=== PATIENT | male | born 1970 | race African-American/Black ===

== ENCOUNTER 2018-01-21 10:57 | Emergency (ER) | payer OTHER, BC ==
[2018-01-21] MEDS ORDERED: Sodium Chloride 0.9% 10 ML Syringe FLUSH PRN (11:25)
[2018-01-21] MEDS ORDERED: Ondansetron 4 MG/2 ML SDV IVPUSH ONE (11:26)
[2018-01-21] MEDS ORDERED: Meclizine 25 MG Tab PO ONE (11:26)
[2018-01-21] MEDS ORDERED: Sodium Chloride 0.9% 1,000 ML IV ONE (11:29)
--- NOTE | 2018-01-21 11:46 | EDM.PDOC ---
ED HPI GENERAL MEDICAL PROBLEM - General Chief Complaint: General Stated Complaint: DIZZY Time Seen by Provider: 01/21/18 11:03 Source of Information: Reports: Patient, RN, RN Notes Reviewed History Limitations: Reports: No Limitations - History of Present Illness INITIAL COMMENTS - FREE TEXT/NARRATIVE: Patient presents to the ED at [facility] complaining of an acute onset of dizziness. Patient does not remember what he was doing at the time the dizziness occurred. He states he had one episode back in 2016 and was told it may be caused from an inner right ear problem. He feels somewhat nauseated. No vomiting. No diarrhea. No recent URI. He states he is trying to stay well hydrated with good PO fluid intake. His appetite has been good. No chest pain. No SOB. No abdominal pain. He feels his balance is significantly affected by the dizziness. No visual field disturbances. No headaches. Onset: Today, Sudden Onset Date: 01/21/18 Onset Time: 08:00 Associated Symptoms: Reports: Nausea/Vomiting - Related Data Allergies Allergy/AdvReac Type Severity Reaction Status Date / Time No Known Allergies Allergy Verified 01/21/18 11:18 Home Meds: Home Meds Folic Acid 1 mg PO DAILY 01/21/18 [History] Past Medical History Hematologic History: Reports: Sickle Cell Anemia Social & Family History - Tobacco Use Smoking Status *Q: Never Smoker ED ROS GENERAL - Review of Systems Review Of Systems: See Below Constitutional: Denies: Fever, Chills, Weakness HEENT: Reports: Vertigo. Denies: Vision Change Respiratory: Denies: Shortness of Breath, Cough Cardiovascular: Denies: Chest Pain, Palpitations GI/Abdominal: Reports: Nausea. Denies: Abdominal Pain, Vomiting Skin: Reports: No Symptoms Neurological: Reports: Dizziness. Denies: Headache, Numbness, Paresthesia, Tingling ED EXAM, GENERAL - Physical Exam Exam: See Below Exam Limited By: No Limitations General Appearance: Alert, No Apparent Distress Eye Exam: Bilateral Eye: Normal Inspection, PERRL Ears: Normal External Exam, Normal Canal, Normal TMs Ear Exam: Bilateral Ear: TM normal Neck: Supple, Full Range of Motion Respiratory/Chest: No Respiratory Distress, Lungs Clear, Normal Breath Sounds Cardiovascular: Normal Peripheral Pulses, Regular Rate, Rhythm Peripheral Pulses: 2+: Radial (L), Radial (R) GI/Abdominal: Normal Bowel Sounds, Soft, Non-Tender Neurological: Alert, Oriented, Normal Cognition Skin Exam: Warm, Dry, Intact, Normal Color, No Rash EKG INTERPRETATION EKG Date: 01/21/18 Time: 11:13 Rhythm: NSR Rate (Beats/Min): 61 [place]: Normal P-Wave: Present QRS: Normal ST-T: Normal QT: Normal [place]/PQ Interval: 0.18 Comparison: NA - No Prior EKG EKG Interpretation Comments: 1. Sinus Rhythm 2. Possible LVH Course - Vital Signs Last Recorded V/S: Last Vital Signs Temp 36.3 C 01/21/18 11:19 Pulse 65 01/21/18 11:19 Resp 16 01/21/18 11:19 BP 152/88 H 01/21/18 11:19 Pulse Ox 100 01/21/18 11:19 - Orders/Labs/Meds Orders: Active Orders 24 hr Category Date Time Status EKG 12 Lead [EKG Documentation Completion] [RC] STAT Care 01/21/18 11:26 Active Consult to Physical Therapy [PT Evaluation and Cons 01/21/18 11:26 Active Treatment] [CONS] Routine CBC WITH AUTO DIFF [HEME] Stat Lab 01/21/18 12:13 Results MANUAL DIFFERENTIAL QA/NC [HEME] Stat Lab 01/21/18 12:13 Results UA W/MICROSCOPIC [URIN] Stat Lab 01/21/18 12:27 Results Labs: Laboratory Tests 01/21/18 01/21/18 01/21/18 Range/Units 12:13 12:13 12:27 WBC 9.1 (4.0-10.0) x10^3/uL RBC 3.83 L (4.5-6.0) x10^6/uL Hgb 8.4 L (14.0-18.0) g/dL Hct 25.2 L (40.0-52.0) % MCV 65.8 L (78.0-93.0) fL MCH 21.9 L (26.0-32.0) pg MCHC 33.3 (32.0-36.0) g/dL RDW Coeff of Tam 23.9 H (10.0-15.0) % Plt Count 180 (130-400) x10^3/uL Add Manual Diff Yes Sodium 143 (136-145) mmol/L Potassium 3.6 (3.5-5.1) mmol/L Chloride 108 H (98-107) mmol/L Carbon Dioxide 26 (21-32) mmol/L BUN 8 (7-18) mg/dL Creatinine 0.7 (0.70-1.30) mg/dL Est Cr Clr Drug Dosing 154.94 mL/min Estimated GFR (MDRD) > 60 Glucose 88 (74-106) mg/dL Calcium 8.8 (8.5-10.1) mg/dL Magnesium 2.0 (1.8-2.4) mg/dL Urine Color Dark yellow H (YELLOW) Urine Appearance Clear (CLEAR) Urine pH 7.0 (5.0-8.0) Ur Specific [place] 1.015 Urine Protein Negative (NEGATIVE) mg/dL Urine Glucose (UA) Negative (NEGATIVE) mg/dL Urine Ketones Negative (NEGATIVE) mg/dL Urine Occult Blood Negative (NEGATIVE) Urine Nitrite Negative (NEGATIVE) Urine Bilirubin Negative (NEGATIVE) Urine Urobilinogen 4.0 H (0.2) EU/dL Ur Leukocyte Esterase Negative (NEGATIVE) Urine Opiates Screen (NEAGTIVE) Ur Buprenorphine Scrn (NEGATIVE) Ur Oxycodone Screen (NEGATIVE) Urine Methadone Screen (NEGATIVE) Ur Barbiturates Screen (NEGATIVE) Ur Tricyclics Screen (NEGATIVE) Ur Amphetamine Screen (NEGATIVE) U Methamphetamines Scrn (NEGATIVE) Urine MDMA Screen (NEGATIVE) U Benzodiazepines Scrn (NEGATIVE) U Cocaine Metab Screen (NEGATIVE) U Marijuana (THC) Screen (NEGATIVE) 01/21/18 Range/Units 12:27 WBC (4.0-10.0) x10^3/uL RBC (4.5-6.0) x10^6/uL Hgb (14.0-18.0) g/dL Hct (40.0-52.0) % MCV (78.0-93.0) fL MCH (26.0-32.0) pg MCHC (32.0-36.0) g/dL RDW Coeff of Tam (10.0-15.0) % Plt Count (130-400) x10^3/uL Add Manual Diff Sodium (136-145) mmol/L Potassium (3.5-5.1) mmol/L Chloride (98-107) mmol/L Carbon Dioxide (21-32) mmol/L BUN (7-18) mg/dL Creatinine (0.70-1.30) mg/dL Est Cr Clr Drug Dosing mL/min Estimated GFR (MDRD) Glucose (74-106) mg/dL Calcium (8.5-10.1) mg/dL Magnesium (1.8-2.4) mg/dL Urine Color (YELLOW) Urine Appearance (CLEAR) Urine pH (5.0-8.0) Ur Specific [place] Urine Protein (NEGATIVE) mg/dL Urine Glucose (UA) (NEGATIVE) mg/dL Urine Ketones (NEGATIVE) mg/dL Urine Occult Blood (NEGATIVE) Urine Nitrite (NEGATIVE) Urine Bilirubin (NEGATIVE) Urine Urobilinogen (0.2) EU/dL Ur Leukocyte Esterase (NEGATIVE) Urine Opiates Screen Negative (NEAGTIVE) Ur Buprenorphine Scrn Negative (NEGATIVE) Ur Oxycodone Screen Negative (NEGATIVE) Urine Methadone Screen Negative (NEGATIVE) Ur Barbiturates Screen Negative (NEGATIVE) Ur Tricyclics Screen Negative (NEGATIVE) Ur Amphetamine Screen Negative (NEGATIVE) U Methamphetamines Scrn Negative (NEGATIVE) Urine MDMA Screen Negative (NEGATIVE) U Benzodiazepines Scrn Negative (NEGATIVE) U Cocaine Metab Screen Negative (NEGATIVE) U Marijuana (THC) Screen Negative (NEGATIVE) Meds: Medications Discontinued Medications Generic Name Dose Route Start Last Admin Trade Name Freq PRN Reason Stop Dose Admin Sodium Chloride 1,000 mls @ 999 mls/hr 01/21/18 11:29 Normal Saline IV 01/21/18 12:29 ONETIME ONE Meclizine HCl 25 mg 01/21/18 11:26 01/21/18 12:02 Antivert PO 01/21/18 11:27 25 mg ONETIME ONE Administration Ondansetron HCl 4 mg 01/21/18 11:26 Zofran IVPUSH 01/21/18 11:27 ONETIME ONE Sodium Chloride 10 ml 01/21/18 11:25 Saline Flush FLUSH ASDIRECTED PRN Keep Vein Open Departure - Departure Time of Disposition: 12:42 Disposition: Home, Self-Care 01 Condition: Good Clinical Impression: Dizziness - Discharge Information Instructions: Dizziness, [id number] Referrals: PCP,None [Primary Care Provider] - Forms: ED Department Discharge Additional Instructions: 1. Stay well hydrated and rest 2. May take over the counter medications for dizziness; talk to your pharmacist about which medication to use 3. May need an appointment with your Primary if dizziness continues 4. You may continue seeing physical therapy for your dizziness as well 5. Call with any questions/concern 6. Have your blood counts recheck at the clinic - Problem List Review Problem List Initiated/Reviewed/Updated: Yes - My Orders Last 24 Hours: My Active Orders 01/21/18 11:26 EKG 12 Lead [EKG Documentation Completion] [RC] STAT Consult to Physical Therapy [PT Evaluation and Treatment] [CONS] Routine 01/21/18 12:13 CBC WITH AUTO DIFF [HEME] Stat MANUAL DIFFERENTIAL QA/NC [HEME] Stat 01/21/18 12:27 UA W/MICROSCOPIC [URIN] Stat - Assessment/Plan Last 24 Hours: My Active Orders 01/21/18 11:26 EKG 12 Lead [EKG Documentation Completion] [RC] STAT Consult to Physical Therapy [PT Evaluation and Treatment] [CONS] Routine 01/21/18 12:13 CBC WITH AUTO DIFF [HEME] Stat MANUAL DIFFERENTIAL QA/NC [HEME] Stat 01/21/18 12:27 UA W/MICROSCOPIC [URIN] Stat Plan: Labs discussed with patient, and discussed lower Hemoglobin. Advised patient to see his PCP for follow up lab. Vertigo was resolved per Physical Therapist. Will recommend OTC medications for dizziness. May want to see PCP if prescription is needed. Stay well hydrated.
[2018-01-21 12:33] LABS: CHLORIDE,CL 108 mmol/L (98-107); SODIUM,NA 143 mmol/L (136-145)
== END 2018-01-21 12:55 | disposition home or self-care (01) ==
LOC: VM.ED 10:57
DX: R42 Dizziness and giddiness (principal)
CPT/HCPCS: 36415; 80048; 80305; 81001; 83735; 85008; 85025; 85045; 93005; 99284; A9270-GY

== ENCOUNTER 2019-06-19 03:15 | Emergency (ER) | payer BC, OTHER ==
[2019-06-19] MEDS ORDERED: Ketorolac 30 MG/ML SDV IM ONE (03:41)
[2019-06-19 04:41] LABS: CHLORIDE,CL 106 mmol/L (98-107); SODIUM,NA 143 mmol/L (136-145)
[2019-06-19 04:47] LABS: ANION GAP 13.5 mmol/L (10-20)
[2019-06-19] MEDS ORDERED: Sodium Chloride 0.9% 10 ML Syringe FLUSH PRN (04:48)
[2019-06-19] MEDS ORDERED: Ondansetron 4 MG/2 ML SDV IVPUSH ONE (04:48)
[2019-06-19] MEDS ORDERED: Morphine 4 MG/ML Syringe IVPUSH ONE (04:48)
--- NOTE | 2019-06-19 04:51 | EDM.PDOC ---
ED HPI GENERAL MEDICAL PROBLEM - General Chief Complaint: General Stated Complaint: Left lateral rib pain Time Seen by Provider: 06/19/19 03:35 Source of Information: Reports: Patient History Limitations: Reports: No Limitations - History of Present Illness INITIAL COMMENTS - FREE TEXT/NARRATIVE: Patient presents with left sided chest pain that is worse on palpation and respiration. Recent corneal transplant done on Friday06/15/19. Has sickle cell disease. Pain started this evening. Was given hydrocodone post surgery for his left eye, however this did not help his chest pain. He denies headache , abdominal pain, altered LOC, no fatigue. Does have shortness of breath. Limbal stem cell deficiency history. Onset: Gradual Onset Date: 06/18/19 Duration: Getting Worse Location: Reports: Chest Quality: Reports: Sharp, Stabbing Severity: Severe Worsens with: Reports: Breathing, Movement Associated Symptoms: Reports: No Other Symptoms Treatments MACHINE SLAT BASKET MAKER: Reports: Other (see below) Other Treatments MACHINE SLAT BASKET MAKER: Hydrocodone at 8pm, with no relief. left lateral ribs Pain Score (Numeric/FACES): 9 - Related Data Allergies Allergy/AdvReac Type Severity Reaction Status Date / Time No Known Allergies Allergy Verified 06/19/19 03:29 Home Meds: Home Meds Folic Acid 1 mg PO DAILY 01/21/18 [History] Acetaminophen/HYDROcodone [[place] 325-5 MG] 1 tab PO Q4H PRN 06/19/19 [History] predniSONE 60 mg pe PO DAILY 06/19/19 [History] Past Medical History Hematologic History: Reports: Sickle Cell Anemia ED ROS GENERAL - Review of Systems Review Of Systems: See Below Constitutional: Reports: No Symptoms HEENT: Reports: No Symptoms Respiratory: Reports: Pleuritic Chest Pain Cardiovascular: Reports: Chest Pain Endocrine: Reports: No Symptoms GI/Abdominal: Reports: No Symptoms : Reports: No Symptoms Musculoskeletal: Reports: No Symptoms Skin: Reports: No Symptoms Neurological: Reports: No Symptoms Psychiatric: Reports: No Symptoms Hematologic/Lymphatic: Reports: No Symptoms Immunologic: Reports: No Symptoms ED EXAM, GENERAL - Physical Exam Exam: See Below Exam Limited By: No Limitations General Appearance: Alert, WD/WN, Mild Distress Eye Exam: Bilateral Eye: EOMI, Normal Inspection Ears: Normal TMs Nose: Normal Inspection, Normal Mucosa, No Blood Throat/Mouth: Normal Inspection, Normal Lips, Normal Teeth, Normal Gums, Normal Oropharynx, Normal Voice, No Airway Compromise Head: Atraumatic, Normocephalic Neck: Normal Inspection, Supple, Non-Tender, Full Range of Motion Respiratory/Chest: No Respiratory Distress, Lungs Clear, Normal Breath Sounds, No Accessory Muscle Use, Chest Non-Tender Cardiovascular: Normal Peripheral Pulses, Regular Rate, Rhythm, No Edema, No Gallop, No JVD, No Murmur, No Rub Peripheral Pulses: 2+: Posterior Tibial (L), Posterior Tibial (R), Dorsalis Pedis (L), Dorsalis Pedis (R) GI/Abdominal: Normal Bowel Sounds, Soft, Non-Tender, No Organomegaly, No Distention, No Abnormal Bruit, No Mass Back Exam: Normal Inspection, Full Range of Motion, NT Extremities: Normal Inspection, Normal Range of Motion, Non-Tender, Normal Capillary Refill, No Pedal Edema Neurological: Alert, Oriented, CN II-XII Intact, Normal Cognition, Normal Gait, Normal Reflexes, No Motor/Sensory Deficits Psychiatric: Normal Affect, Normal Mood Skin Exam: Warm, Dry, Intact, Normal Color, No Rash Lymphatic: No Adenopathy Course - Vital Signs Last Recorded V/S: Last Vital Signs Temp 37.1 C 06/19/19 03:15 Pulse 62 06/19/19 03:15 Resp 16 06/19/19 03:15 BP 142/87 H 06/19/19 03:15 Pulse Ox 97 06/19/19 03:15 Departure - Departure Time of Disposition: 06:47 Disposition: Home, Self-Care 01 Condition: Fair Clinical Impression: Costochondritis, acute - Discharge Information *PRESCRIPTION DRUG MONITORING PROGRAM REVIEWED*: No *COPY OF PRESCRIPTION DRUG MONITORING REPORT IN PATIENT ALAN: No Instructions: Costochondritis, [id number] Additional Instructions: Plan 1. Stay well hydrated 2. Take oxycodone as needed for chest wall pain 3. Follow up with your fiction and nonfiction prose writer as needed for sickle cell follow up 4. Labs today were negative for acute process 5. Continue to take your prednisone 6. 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 Stay well hydrated 2. Take oxycodone as needed for chest wall pain 3. Follow up with your fiction and nonfiction prose writer as needed for sickle cell follow up 4. Labs today were negative for acute process 5. Continue to take your prednisone 6. Call here with any additional questions or concerns
[2019-06-19] MEDS ORDERED: Sodium Chloride 0.9% 1,000 ML IV SCH (05:00)
[2019-06-19] MEDS ORDERED: cefTRIAXone 2 GM Vial IVPUSH ONE (05:16)
[2019-06-19] MEDS ORDERED: oxyCODONE 5 MG Tab PO ONE (06:39)
--- NOTE | 2019-06-19 09:13 | CT ---
[id number] CT/CTA Chest EXAM: CT ANGIOGRAM CHEST INDICATION: CHEST PAIN, ELEVATED D-DIMER COMPARISON: None. DISCUSSION: The pulmonary arteries are normal in appearance with no emboli identified. And atelectasis at the lung bases. Linear atelectasis and/or scarring within the right lower lobe. Trace bilateral pleural effusions. No pneumothorax. Mild predominantly centrilobular emphysema. No airspace consolidation. No pulmonary edema. The heart is enlarged. No significant atherosclerotic calcifications of the aorta or its branches. No pericardial effusion. The imaged upper abdomen and osseous structures are unremarkable. IMPRESSION: 1. No evidence of acute pulmonary embolism. 2. Trace bilateral pleural effusions. Noel Limon DO 06/19/19 0912 Thank you for allowing us to participate in the care of your patient.
--- NOTE | 2019-06-19 09:46 | CR ---
[id number] RAD/RAD Chest PA or AP 1V EXAM: RAD Chest PA or AP 1V INDICATION: CHEST PAIN COMPARISON: None. DISCUSSION: Cardiomediastinal silhouette is normal in size and contour. Elevation left hemidiaphragm. No infiltrate, effusion, pneumothorax, or edema. Low lung volumes associated vascular crowding. Left basilar subsegmental atelectasis. IMPRESSION: No acute cardiopulmonary abnormality. Noel Limon DO 06/19/19 0945 Thank you for allowing us to participate in the care of your patient.
== END 2019-06-19 07:02 | disposition home or self-care (01) ==
LOC: VM.ED 03:15
DX: M94.0 Chondrocostal junction syndrome [Tietze] (principal)
CPT/HCPCS: 36415; 71045; 71275; 80053; 81001; 82550; 83605; 84484; 85025; 85379; 86140; 87040; 96361; 96372; 96374; 96375; 99284; A9270; J0696; J1885; J2270; J2405; J7030

== ENCOUNTER 2019-07-21 21:45 | Emergency (ER) | payer OTHER ==
[2019-07-21] MEDS ORDERED: Sodium Chloride 0.9% 10 ML Syringe FLUSH PRN (22:14)
[2019-07-21] MEDS: Sodium Chloride 0.9% 1,000 ML IV ONE ×2 (22:20→23:15)
--- NOTE | 2019-07-21 22:22 | EDM.PDOC ---
ED HPI GENERAL MEDICAL PROBLEM - General Chief Complaint: General Stated Complaint: Acute low back pain, Hx sickle cell anemia Time Seen by Provider: 07/21/19 22:05 Source of Information: Reports: Patient - History of Present Illness INITIAL COMMENTS - FREE TEXT/NARRATIVE: Luis Eduardo is a 48 y/o male who comes to the ER with complaints of back pain. He reports that the pain started this AM, has gotten worse through the day. He has a history of sickle cell anemia. He has been using pain meds at home and trying to drink water, but he cannot head off the crisis. 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 Ortho has been giving Hydrocodone for his hip pain and he tried using that today , but it did not help. He also has been struggling with constipation for the last few days since he has been using the pain meds. He was last seen at [facility], but does not have a local PCP. low back/bilatral hips Pain Score (Numeric/FACES): 10 - Related Data Allergies Allergy/AdvReac Type Severity Reaction Status Date / Time No Known Allergies Allergy Verified 07/21/19 22:44 Home Meds: Home Meds Folic Acid 1 mg PO DAILY 01/21/18 [History] Acetaminophen/HYDROcodone [[place] 325-5 MG] 1 tab PO Q4H PRN 06/19/19 [History] predniSONE 5 mg pe PO DAILY 06/19/19 [History] Hydrocodone/Acetaminophen [Hydrocodon-Acetaminophen 5-325] 1 - 2 each PO Q6HR # 20 tablet 07/21/19 [Rx] Past Medical History HEENT History: Reports: Other (See Below) Other HEENT History: Limbal stem cell deficiency Hematologic History: Reports: Sickle Cell Anemia - Past Surgical History HEENT Surgical History: Reports: Eye Surgery, Other (See Below) Other HEENT Surgeries/Procedures: Bilateral corneal transplant. ED ROS GENERAL - Review of Systems Review Of Systems: See Below Constitutional: Reports: No Symptoms HEENT: Reports: No Symptoms Respiratory: Reports: No Symptoms Cardiovascular: Reports: No Symptoms Endocrine: Reports: No Symptoms GI/Abdominal: Reports: Constipation : Reports: No Symptoms Musculoskeletal: Reports: Back Pain, Joint Pain (Bilateral Hip Pain) Skin: Reports: No Symptoms Neurological: Reports: No Symptoms Psychiatric: Reports: No Symptoms Hematologic/Lymphatic: Reports: Anemia Immunologic: Reports: No Symptoms ED EXAM, GENERAL - Physical Exam Exam: See Below General Appearance: Alert, WD/WN (adult male, obviosuly in pain; lying on ER cart) Ears: Normal External Exam, Hearing Grossly Normal Nose: Normal Inspection, No Blood Throat/Mouth: Normal Inspection, Normal Lips Head: Atraumatic, Normocephalic Neck: Supple Respiratory/Chest: No Respiratory Distress, Lungs Clear, Normal Breath Sounds, Chest Non-Tender Cardiovascular: Regular Rate, Rhythm, No Edema, No Murmur GI/Abdominal: Normal Bowel Sounds, Soft, Non-Tender (Male) Exam: Deferred Rectal (Males) Exam: Deferred Extremities: Normal Inspection, Normal Capillary Refill Neurological: Alert, Oriented, CN II-XII Intact, Normal Cognition Psychiatric: Normal Affect, Normal Mood Skin Exam: Warm, Dry, Intact, Normal Color, No Rash Lymphatic: No Adenopathy Course - Vital Signs Text/Narrative:: 2204 The patient was seen by the SAMPLE ROOM SUPERVISOR. Labs were ordered. Oxygen ordered. He was given a liter of NS and Fentanyl 100mcg IVP. 2314 Patient feeling better, rating pain 5/10. Will given a second liter of IV fluids and Fentanyl 50 mcg IVP. Will discharge to home after IV fluids are done. He was given discharge instructions and left the ER in stable condition. Last Recorded V/S: Last Vital Signs Temp 36.5 C 07/21/19 21:45 Pulse 63 07/21/19 21:45 Resp 16 07/21/19 21:45 BP 195/90 H 07/21/19 21:45 Pulse Ox 100 07/21/19 21:45 - Orders/Labs/Meds Orders: Active Orders 24 hr Category Date Time Status Oxygen Therapy [RC] ASDIRECTED Care 07/21/19 22:14 Active Sodium Chloride 0.9% @ Wide Open(1,000ml) Med 07/21/19 23:12 Ordered Sodium Chloride 0.9% [Normal Saline] 1,000 ml IV ONETIME Sodium Chloride 0.9% [Saline Flush] Med 07/21/19 22:14 Active 10 ml FLUSH ASDIRECTED PRN Saline Lock Insert [OM.PC] Stat Oth 07/21/19 22:13 Ordered Medication Orders Sodium Chloride (Normal Saline) 1,000 mls @ 999 mls/hr IV ONETIME ONE Stop: 07/22/19 00:12 Last Admin: 07/21/19 23:15 Dose: 999 mls/hr Sodium Chloride (Saline Flush) 10 ml FLUSH ASDIRECTED PRN PRN Reason: Keep Vein Open Labs: Laboratory Tests 07/21/19 07/21/19 07/21/19 Range/Units 22:22 22:22 22:50 WBC 19.9 H (4.0-10.0) x10^3/uL RBC 3.76 L (4.5-6.0) x10^6/uL Hgb 9.5 L (14.0-18.0) g/dL Hct 27.7 L (40.0-52.0) % MCV 73.7 L D (78.0-93.0) fL MCH 25.3 L (26.0-32.0) pg MCHC 34.3 (32.0-36.0) g/dL RDW Coeff of Tam 25.5 H (10.0-15.0) % Plt Count 199 (130-400) x10^3/uL Add Manual Diff Yes Neutrophils % (Manual) 80 (50-80) % Band Neutrophils % 2 (0-6) % Lymphocytes % (Manual) 8 L (25-50) % Monocytes % (Manual) 7 (2-11) % Metamyelocytes % 3 H (0) % Nucleated RBCs 2 (0-5) /100WBC Platelet Estimate Adequate Poikilocytosis 2+ moderate H Anisocytosis 2+ moderate H Macrocytosis 2+ moderate H Spherocytes 2+ moderate H Sickle Cells 2+ moderate H Sodium 142 (136-145) mmol/L Potassium 3.6 (3.5-5.1) mmol/L Chloride 104 (98-107) mmol/L Carbon Dioxide 26 (21-32) mmol/L Anion Gap 15.6 (10-20) mmol/L BUN 7 (7-18) mg/dL Creatinine 0.8 (0.70-1.30) mg/dL Est Cr Clr Drug Dosing 134.15 mL/min Estimated GFR (MDRD) > 60 Glucose 122 H (74-106) mg/dL Calcium 9.2 (8.5-10.1) mg/dL Corrected Calcium 9.44 (8.5-10.1) mg/dL Total Bilirubin 2.1 H (0.2-1.0) mg/dL AST 33 (15-37) U/L ALT 32 (16-63) U/L Alkaline Phosphatase 112 (46-116) U/L Total Protein 8.0 (6.4-8.2) g/dL Albumin 3.7 (3.4-5.0) g/dL Globulin 4.3 Albumin/Globulin Ratio 0.86 Urine Color Dark yellow H (YELLOW) Urine Appearance Slightly cloudy H (CLEAR) Urine pH 7.0 (5.0-8.0) Ur Specific [place] 1.015 Urine Protein 30 H (NEGATIVE) mg/dL Urine Glucose (UA) Negative (NEGATIVE) mg/dL Urine Ketones Negative (NEGATIVE) mg/dL Urine Occult Blood Negative (NEGATIVE) Urine Nitrite Negative (NEGATIVE) Urine Bilirubin Negative (NEGATIVE) Urine Urobilinogen 2.0 H (0.2) EU/dL Ur Leukocyte Esterase Negative (NEGATIVE) Urine RBC 0-5 (NOT SEEN) /HPF Urine WBC 0-5 (NOT SEEN) /HPF Ur Squamous Epith Cells Rare (NEGATIVE) /HPF Urine Bacteria Rare (NEGATIVE) /HPF Urine Mucus Rare H (NEGATIVE) /LPF Meds: Medications Generic Name Dose Route Start Last Admin Trade Name Freq PRN Reason Stop Dose Admin Sodium Chloride 1,000 mls @ 999 mls/hr 07/21/19 23:12 07/21/19 23:15 Normal Saline IV 07/22/19 00:12 999 mls/hr ONETIME ONE Administration Sodium Chloride 10 ml 07/21/19 22:14 Saline Flush FLUSH ASDIRECTED PRN Keep Vein Open Discontinued Medications Generic Name Dose Route Start Last Admin Trade Name Freq PRN Reason Stop Dose Admin Fentanyl 100 mcg 07/21/19 22:16 07/21/19 22:29 Sublimaze IVPUSH 07/21/19 22:17 100 mcg ONETIME ONE Administration Fentanyl 50 mcg 07/21/19 23:13 07/21/19 23:20 Sublimaze IVPUSH 07/21/19 23:14 50 mcg ONETIME ONE Administration Sodium Chloride 1,000 mls @ 999 mls/hr 07/21/19 22:15 07/21/19 22:20 Normal Saline IV 07/21/19 23:15 999 mls/hr ONETIME ONE Administration Departure - Departure Time of Disposition: 23:45 Disposition: Home, Self-Care 01 Condition: Good Clinical Impression: Sickle cell anemia with pain - Discharge Information *PRESCRIPTION DRUG MONITORING PROGRAM REVIEWED*: No *COPY OF PRESCRIPTION DRUG MONITORING REPORT IN PATIENT ALAN: No Prescriptions: Hydrocodone/Acetaminophen [Hydrocodon-Acetaminophen 5-325] 1 - 2 each PO Q6HR # 20 tablet Instructions: Sickle Cell Anemia, Adult Referrals: PCP,Unknown [Primary Care Provider] - Forms: ED Department Discharge Additional Instructions: 1)Establish care with a local PCP as soon as possible 2)Continue with pain meds as needed 3)Stay well hydrated 4)Hydrocodone/APAP 5/325mg 1-2 tablets oral every 4-6 hours as needed for pain # 20 (Rx) 5)Return to the ER if pain persists or your condition does improve as expected - My Orders Last 24 Hours: My Active Orders 07/21/19 22:13 Saline Lock Insert [OM.PC] Stat 07/21/19 22:14 Oxygen Therapy [RC] ASDIRECTED Sodium Chloride 0.9% [Saline Flush] 10 ml FLUSH ASDIRECTED PRN 07/21/19 23:12 Sodium Chloride 0.9% @ Wide Open(1,000ml) Sodium Chloride 0.9% [Normal Saline] 1 ,000 ml IV ONETIME - Assessment/Plan Last 24 Hours: My Active Orders 07/21/19 22:13 Saline Lock Insert [OM.PC] Stat 07/21/19 22:14 Oxygen Therapy [RC] ASDIRECTED Sodium Chloride 0.9% [Saline Flush] 10 ml FLUSH ASDIRECTED PRN 07/21/19 23:12 Sodium Chloride 0.9% @ Wide Open(1,000ml) Sodium Chloride 0.9% [Normal Saline] 1 ,000 ml IV ONETIME
[2019-07-21] MEDS: fentaNYL 100 MCG/2 ML SDV IVPUSH ONE ×2 (22:29→23:20)
[2019-07-21 22:51] LABS: CHLORIDE,CL 104 mmol/L (98-107); SODIUM,NA 142 mmol/L (136-145)
[2019-07-21 22:52] LABS: ANION GAP 15.6 mmol/L (10-20)
== END 2019-07-21 23:55 | disposition home or self-care (01) ==
LOC: VM.ED 21:45
DX: D57.1 Sickle-cell disease without crisis (principal); M54.5 Low back pain
CPT/HCPCS: 80053; 81001; 85025; 96361; 96374; 96376; 99284-25; J3010; J7030

== ENCOUNTER 2019-07-22 08:30 | Observation (INO) | payer OTHER ==
[2019-07-22] MEDS ORDERED: fentaNYL 100 MCG/2 ML SDV IVPUSH PRN (08:37)
[2019-07-22] MEDS ORDERED: Sodium Chloride 0.9% 1,000 ML IV ONE ×2 (08:37→09:30)
[2019-07-22] MEDS ORDERED: HYDROmorphone 1 MG/ML Syringe IVPUSH PRN (08:39)
[2019-07-22] MEDS ORDERED: Acetaminophen 325 MG Tab PO PRN (08:39)
[2019-07-22] MEDS ORDERED: Ondansetron 4 MG/2 ML SDV IV PRN (08:39)
--- NOTE | 2019-07-22 08:58 | PCM.HP.2 ---
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 He was given IV fluids and pain meds and was doing much better. He was sent home and then at home the pain returned and he could not keep pain meds down. He was in pain most of the night. He is brought back to the hospital by ambulance and was given Fentanyl 100mcg IVP enroute to the ER. - Related Data Allergies/Adverse Reactions: Allergies Allergy/AdvReac Type Severity Reaction Status Date / Time No Known Allergies Allergy Verified 07/21/19 22:44 Home Medications: Home Meds Folic Acid 1 mg PO DAILY 01/21/18 [History] Past Medical History HEENT History: Reports: Other (See Below) Other HEENT History: Limbal stem cell deficiency Hematologic History: Reports: Sickle Cell Anemia - Past Surgical History HEENT Surgical History: Reports: Eye Surgery, Other (See Below) Other HEENT Surgeries/Procedures: Bilateral corneal transplant. H&P Review of Systems - Review of Systems: Review Of Systems: See Below General: Reports: No Symptoms HEENT: Reports: No Symptoms Pulmonary: Reports: No Symptoms Cardiovascular: Reports: No Symptoms Gastrointestinal: Reports: No Symptoms Genitourinary: Reports: No Symptoms Musculoskeletal: Reports: Back Pain Skin: Reports: No Symptoms Psychiatric: Reports: No Symptoms Neurological: Reports: No Symptoms Hematologic/Lymphatic: Reports: Anemia Immunologic: Reports: No Symptoms Exam - Exam Exam: See Below - Vital Signs Vital Signs: Last Vital Signs Temp 38.3 C H 07/22/19 08:37 Pulse 76 07/22/19 08:37 Resp 16 07/22/19 08:37 BP 147/79 H 07/22/19 08:37 Pulse Ox 100 07/22/19 08:37 - Exam Quality Assessment: Supplemental Oxygen General: Alert, Oriented HEENT: Conjunctiva Clear, Nares Patent, Pupils Equal, Pupils Reactive, TMs Clear Neck: Supple Lungs: Clear to Auscultation, Normal Respiratory Effort Cardiovascular: Regular Rate, Regular Rhythm GI/Abdominal Exam: Normal Bowel Sounds, Soft, Non-Tender (Male) Exam: Deferred Rectal (Males) Exam: Deferred Back Exam: Normal Inspection Extremities: Normal Inspection Skin: Warm, Dry, Intact Neurological: Cranial Nerves Intact Neuro Extensive - Mental Status: Alert, Oriented x3, Normal Mood/Affect, Normal Cognition Neuro Extensive - Motor, Sensory, Reflexes: CN II-XII Intact Physical Exam Comments:: Adult male , appears to be in pain - Problem List (1) Sickle cell anemia with pain SNOMED Code(s): 247676911 ICD Code: D57.00 - HB-SS DISEASE WITH CRISIS, UNSPECIFIED Status: Acute Priority: High Current Visit: Yes Onset Date: ~07/21/19 Problem List Initiated/Reviewed/Updated: Yes Orders Last 24hrs: Active Orders 24 hr Category Date Time Status Admission Status [Patient Status] [ADT] Routine ADT 07/22/19 08:37 Active Patient Status [ADT] Routine ADT 07/22/19 08:39 Ordered Ambulate [RC] PER UNIT ROUTINE Care 07/22/19 08:43 Ordered Height and Weight [RC] UPON Care 07/22/19 08:39 Ordered Intake and Output [RC] QSHIFT Care 07/22/19 08:42 Ordered Oxygen Therapy [RC] PRN Care 07/22/19 08:39 Ordered Up ad Toshia [RC] ASDIRECTED Care 07/22/19 08:39 Ordered VTE/DVT Education [RC] PER UNIT ROUTINE Care 07/22/19 08:39 Ordered Vital Signs [RC] Q4H Care 07/22/19 08:39 Ordered Regular Diet [DIET] Diet 07/22/19 Lunch Ordered C-REACTIVE PROTEIN [CHEM] Stat Lab 07/22/19 08:39 Ordered CBC WITH AUTO DIFF [HEME] Stat Lab 07/22/19 08:39 Ordered COMPREHENSIVE METABOLIC PN,CMP [CHEM] Stat Lab 07/22/19 08:39 Ordered LACTIC ACID [CHEM] Stat Lab 07/22/19 08:47 Ordered Acetaminophen [Tylenol] Med 07/22/19 08:39 Ordered 650 mg PO Q4H PRN Ondansetron [Zofran] Med 07/22/19 08:39 Ordered 4 mg IV Q4H PRN Sodium Chloride 0.45% 1,000 ml Med 07/22/19 09:00 Ordered IV ASDIRECTED Sodium Chloride 0.9% @ Wide Open(1,000ml) Med 07/22/19 08:37 Ordered Sodium Chloride 0.9% [Normal Saline] 1,000 ml IV ONETIME Sodium Chloride 0.9% @ Wide Open(1,000ml) Med 07/22/19 08:47 Ordered Sodium Chloride 0.9% [Normal Saline] 1,000 ml IV ONETIME Sodium Chloride 0.9% [Saline Flush] Med 07/22/19 08:39 Ordered 10 ml FLUSH ASDIRECTED PRN fentaNYL [Sublimaze] Med 07/22/19 08:37 Ordered 100 mcg IVPUSH ASDIRECTED PRN Peripheral IV Insertion Adult [OM.PC] Routine Oth 07/22/19 08:39 Ordered Resuscitation Status Routine Resus Stat 07/22/19 08:39 Ordered Medication Orders Acetaminophen (Tylenol) 650 mg PO Q4H PRN PRN Reason: Pain (Mild 1-3)/fever Fentanyl (Sublimaze) 100 mcg IVPUSH ASDIRECTED PRN PRN Reason: Pain Sodium Chloride (Normal Saline) 1,000 mls @ 999 mls/hr IV ONETIME ONE Stop: 07/22/19 09:37 Sodium Chloride (Normal Saline) 1,000 mls @ 999 mls/hr IV ONETIME ONE Stop: 07/22/19 09:47 Sodium Chloride (Sodium Chloride 0.45%) 1,000 mls @ 200 mls/hr IV ASDIRECTED NELL Ondansetron HCl (Zofran) 4 mg IV Q4H PRN PRN Reason: Nausea/Vomiting Sodium Chloride (Saline Flush) 10 ml FLUSH ASDIRECTED PRN PRN Reason: Keep Vein Open Assessment/Plan Comment:: 1)Admit to Observation for IV Fluids and Pain management 2)See Orders - Mortality Measure Prognosis:: Good
[2019-07-22] MEDS ORDERED: Sodium Phosphate,Monobasic/Sodium Phosphate,Dibasic Enema 133 ML Bottle RECTAL ONE (09:19)
[2019-07-22] MEDS: HYDROmorphone 1 MG/ML Syringe IV PRN ×6 (09:34→19:40)
[2019-07-22] MEDS: Sodium Chloride 0.45% 1,000 ML IV SCH ×3 (09:41→19:12)
[2019-07-22 09:42] LABS: ANION GAP 13.5 mmol/L (10-20); CHLORIDE,CL 106 mmol/L (98-107); SODIUM,NA 143 mmol/L (136-145)
--- NOTE | 2019-07-22 10:15 | PCM.PN ---
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 Patient still in a great deal of pain after IV fluids started and pain meds given. - Patient Data Vitals - Most Recent: Last Vital Signs Temp 38.3 C H 07/22/19 08:37 Pulse 76 07/22/19 08:37 Resp 16 07/22/19 08:37 BP 147/79 H 07/22/19 08:37 Pulse Ox 100 07/22/19 08:37 Weight - Most Recent: 92.533 kg Lab Results Last 24 Hours: Laboratory Results - last 24 hr 07/22/19 07/22/19 07/22/19 Range/Units 09:10 09:10 09:10 WBC 25.0 H* (4.0-10.0) x10^3/uL RBC 3.02 L (4.5-6.0) x10^6/uL Hgb 7.7 L D (14.0-18.0) g/dL Hct 22.7 L (40.0-52.0) % MCV 75.2 L (78.0-93.0) fL MCH 25.5 L (26.0-32.0) pg MCHC 33.9 (32.0-36.0) g/dL RDW Coeff of Tam 24.8 H (10.0-15.0) % Plt Count 150 (130-400) x10^3/uL Add Manual Diff Yes Neutrophils % (Manual) 71 (50-80) % Band Neutrophils % 5 (0-6) % Lymphocytes % (Manual) 23 L (25-50) % Monocytes % (Manual) 1 L (2-11) % Nucleated RBCs 2 (0-5) /100WBC Platelet Estimate Decreased L Anisocytosis 2+ moderate H Microcytosis 1+ slight H Sickle Cells 2+ moderate H Ovalocytes 1+ slight H Sodium 143 (136-145) mmol/L Potassium 3.5 (3.5-5.1) mmol/L Chloride 106 (98-107) mmol/L Carbon Dioxide 27 (21-32) mmol/L Anion Gap 13.5 (10-20) mmol/L BUN 6 L (7-18) mg/dL Creatinine 0.6 L (0.70-1.30) mg/dL Est Cr Clr Drug Dosing 178.86 mL/min Estimated GFR (MDRD) > 60 Glucose 125 H (74-106) mg/dL Lactic Acid 0.9 (0.4-2.0) mmol/L Calcium 8.2 L (8.5-10.1) mg/dL Corrected Calcium 8.84 (8.5-10.1) mg/dL Total Bilirubin 1.9 H (0.2-1.0) mg/dL AST 70 H (15-37) U/L ALT 36 (16-63) U/L Alkaline Phosphatase 112 (46-116) U/L C-Reactive Protein 3.0 H (<=0.9) mg/dL Total Protein 7.1 (6.4-8.2) g/dL Albumin 3.2 L (3.4-5.0) g/dL Globulin 3.9 Albumin/Globulin Ratio 0.82 Med Orders - Current: Current Medications Acetaminophen (Tylenol) 650 mg PO Q4H PRN PRN Reason: Pain (Mild 1-3)/fever Hydromorphone HCl (Dilaudid) 0.5 mg IV Q2H PRN PRN Reason: PAIN Last Admin: 07/22/19 09:34 Dose: 0.5 mg Sodium Chloride (Normal Saline) 1,000 mls @ 999 mls/hr IV ONETIME ONE Stop: 07/22/19 10:30 Last Admin: 07/22/19 09:37 Dose: 999 mls/hr Sodium Chloride (Sodium Chloride 0.45%) 1,000 mls @ 200 mls/hr IV ASDIRECTED [facility] Last Admin: 07/22/19 09:41 Dose: 200 mls/hr Ondansetron HCl (Zofran) 4 mg IV Q4H PRN PRN Reason: Nausea/Vomiting Sodium Chloride (Saline Flush) 10 ml FLUSH ASDIRECTED PRN PRN Reason: Keep Vein Open Discontinued Medications Hydromorphone HCl (Dilaudid) 1 mg IVPUSH Q2H PRN PRN Reason: Pain (severe 7-10) Sodium Biphosphate/Sodium Phosphate (Fleet Enema) 133 ml RECTAL ONETIME ONE Stop: 07/22/19 09:20 - Problem List & Annotations (1) Sickle cell anemia with pain SNOMED Code(s): 695987431 Code(s): D57.00 - HB-SS DISEASE WITH CRISIS, UNSPECIFIED Status: Acute Priority: High Current Visit: Yes Onset Date: ~07/21/19 - Problem List Review Problem List Initiated/Reviewed/Updated: Yes - My Orders Last 24 Hours: My Active Orders 07/22/19 08:37 Admission Status [Patient Status] [ADT] Routine 07/22/19 08:39 Patient Status [ADT] Routine Height and Weight [RC] UPON Oxygen Therapy [RC] PRN Up ad Toshia [RC] ASDIRECTED VTE/DVT Education [RC] PER UNIT ROUTINE Vital Signs [RC] Q4H Acetaminophen [Tylenol] 650 mg PO Q4H PRN Ondansetron [Zofran] 4 mg IV Q4H PRN Sodium Chloride 0.9% [Saline Flush] 10 ml FLUSH ASDIRECTED PRN Peripheral IV Insertion Adult [OM.PC] Routine Resuscitation Status Routine 07/22/19 08:42 Intake and Output [RC] QSHIFT 07/22/19 08:43 Ambulate [RC] PER UNIT ROUTINE 07/22/19 09:24 HYDROmorphone [Dilaudid] 0.5 mg IV Q2H PRN 07/22/19 09:30 Sodium Chloride 0.9% [Normal Saline] 1,000 ml IV ONETIME 07/22/19 10:30 Sodium Chloride 0.45% 1,000 ml IV ASDIRECTED 07/22/19 Lunch Regular Diet [DIET] - Plan Plan:: 1)[facility] contacted and requested transfer of this patient at [id number].
[2019-07-22] MEDS ORDERED: prednisoLONE Acetate 1% Ophth Susp 5 ML Bottle EYELF SCH (13:00)
[2019-07-22] MEDS: REFRESH LIQUIGEL 1% EYEBOTH SCH ×3 (13:12→19:19)
[2019-07-22] MEDS: Ofloxacin EYELF SCH ×3 (13:13→19:18)
[2019-07-22] MEDS: PREDNISOLONE ACETATE 1% EYELF SCH ×2 (13:15→19:18)
[2019-07-22] MEDS ORDERED: Acetaminophen 500 MG Tab PO STA (18:43)
[2019-07-22] MEDS: Sodium Chloride 0.9% 10 ML Syringe FLUSH PRN ×2 (19:38→21:28)
[2019-07-22] MEDS ORDERED: HYDROmorphone 1 MG/ML Syringe IVPUSH STA (21:20)
[2019-07-22] MEDS ORDERED: HYDROmorphone 1 MG/ML Syringe IV PRN (21:29)
== END 2019-07-22 22:50 | disposition short-term general hospital (02) ==
LOC: VM.MS 08:30
PROVIDERS: ADMIT Nurse Practitioner Family; ATTEND Nurse Practitioner Family
DX: D57.20 Sickle-cell/Hb-C disease without crisis (principal); Z79.899 Other long term (current) drug therapy
CPT/HCPCS: 36415; 80053; 83605; 85025; 86140; 96361; 96374; 96376; A9270; G0378; J1170; J7030